=== PATIENT | female | born 1950 | race Caucasian/White ===

== ENCOUNTER 2016-10-24 16:13 | Emergency (ER) | payer OTHER ==
--- NOTE | 2016-10-24 16:51 | EDPHY ---
HPI/HX/ROS/PE/MDM Narrative: CHIEF COMPLAINT: Head injury, syncope, fever. HISTORY OF PRESENT ILLNESS: This is a 66-year-old female who presents after a syncopal episode earlier today. She has had 5 days of fever around 101-102 with cough, rhinorrhea, and myalgia. Today after a shower she was sitting on the side of the tub, when she had a syncopal episode and fell backward, hitting her head. She reports feeling near syncopal, light headed, tunnel vision prior to syncope. She immediately woke up and has not been confused since. She admits non-radiating lower back achiness. She denies diarrhea. No chest pain, shortness of breath, palpitations, vomiting, urinary complaints, headache, lightheadedness. She is not anticoagulated on blood thinners. She did not get a flu shot this year. REVIEW OF SYSTEMS: Aside from elements discussed in the HPI, a comprehensive 10-point review of systems was reviewed and is negative. PAST MEDICAL HISTORY: Cystitis, appendectomy, tonsillectomy. SOCIAL HISTORY: . VITAL SIGNS: Reviewed by me; see NN. GENERAL: Well-developed, well-nourished, in no acute distress. HEENT: Head: 1.5cm laceration to posterior head, with scant bleeding. Normocephalic. Face: Atraumatic. PERRL, EOMI, no nystagmus. Oropharynx: No trauma, normal occlusion. Neck: High cervical spine (C2/C3) tenderness. No pain with range of motion, no adenopathy. CHEST: Nontender, no subcutaneous air palpable. LUNGS: Clear to auscultation bilaterally, breath sounds are equal. Wet cough. CARDIAC: Regular rate and rhythm, no rubs, murmurs or gallops. ABDOMEN: Soft, nontender, nondistended, bowel sounds normal. BACK: No CVA tenderness. EXTREMITIES: No trauma noted, normal range of motion. PULSES: 2+ and equal throughout. NEURO: Alert and oriented x3, cranial nerves are intact throughout, normal motor , normal sensation. SKIN: Warm and dry, no rash. Portions of this note were transcribed by a medical diagnostic radiographer. I personally performed a history, physical exam, medical decision making, and confirmed accuracy of information the transcribed note. ED Course: Influenza swab ordered. Chest x-ray obtained due to fever. An IV was established and labs ordered. 1L IV saline administered for hydration. WBC low at 1.98. Flu swab positive for influenza B, however the patient has had her symptoms for too long to indicate Tamiflu treatment. X-ray of the chest was obtained. I viewed the images myself on the PACS system. My interpretation of the images is: no acute process. The radiologist interpretation is pending at this time. I discussed the x-ray findings with the patient. EK lead EKG was obtained. Independently reviewed by myself and interpreted as NSR. See [facility] for full report. Study: CT of the head/cervical spine. Indication: Trauma. Results: Mild deep hemispheric white matter change which is not specific and can be seen with small vessel ischemic disease. No evidence for acute intracranial abnormality. 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 Prominent kyphotic curvature of the cervical spine which could be secondary to positioning or muscle spasm. No evidence for acute fracture. The study was read by the radiologist Dr. Moreau. I viewed the images myself on the PACS system. Procedure: Laceration repair. Verbal consent was obtained from the patient. The 1.5 cm laceration on the posterior scalp was anesthetized. The wound was cleaned with standard ED protocol, draped and explored to its base with a gloved finger. There were no deep structures involved. The wound was repaired in single layer technique with evie. The wound repair was simple. The procedure was performed by myself. MDM: 66 year old with a syncopal episode after taking a hot bath. Do not suspect cardiac syncope. CT scans negative (head and cervical spine) for acute process. Fever likely from influenza B. Will encourage her to push fluids, rest, and take antipyretics. Offered admission to hospital but patient prefers to be discharged to home. I believe this is a reasonable plan. DCd with . - Data Points Laboratory Results: Laboratory Results 10/24/16 18:00 10/24/16 18:00 Medications Given: Discontinued Medications Sodium Chloride (Ns) 1,000 mls @ 0 mls/hr IV ONCE ONE PRN Reason: Wide Open Stop: 10/24/16 17:22 Last Admin: 10/24/16 18:29 Dose: 1,000 mls General Time Seen by Provider: 10/24/16 16:45 Initial Vital Signs: Initial Vital Signs Temperature (C) 36.5 C 10/24/16 16:19 Heart Rate 79 10/24/16 16:19 Respiratory Rate 22 H 10/24/16 16:19 Blood Pressure 124/74 H 10/24/16 16:19 O2 Sat (%) 95 10/24/16 16:19 O2 Delivery Mode Room Air Allergies/Adverse Reactions: No Known Allergies Allergy (Unverified 10/24/16 16:19) Home Medications: Medication Instructions Recorded NK [No Known Home Meds] 10/24/16 Departure - Departure Disposition: Home, Routine, Self-Care Clinical Impression: Influenza B Syncope Qualifiers: Syncope type: vasovagal syncope Qualified Code(s): R55 - Syncope and collapse Head injury Qualifiers: Encounter type: initial encounter Qualified Code(s): S09.90XA - Unspecified injury of head, initial encounter Condition: Good Instructions: Syncope (ED), Influenza (ED), Head Injury (ED) Additional Instructions: Drink plenty of fluids including electrolytes. Keep wound clean with warm water. Adult Pain & Fever Control: We recommend Acetaminophen (Tylenol) and Ibuprofen (Motrin,Advil) for pain and fever control. When fever is high or pain severe, both drugs can be used at the same time, but at different intervals. Please note the time differences. Your dose is: Acetaminophen 650mg every 4 to 6 hours Ibuprofen 600mg every 4-6 hours with food Note: do not take Acetaminophen with Hydrocodone (Vicodin, Lortab) or Oycodone (Percocet). These medications also contain Acetaminophen. No more than 3000mg of Acetaminophen should be taken in 24 hours (for an adult). Return for staple removal in -. Follow up with your primary care provider this week for reevaluation. Return to the emergency department if you experience any serious worsening of condition. Referrals: Ginger Hernandez MD [Primary Care Provider] - As per Instructions Report Scribed for: Katty Estrella Report Scribed by: Gustabo Hernandes Date of Report: 10/24/16 Time of Report: 16:50
[2016-10-24] MEDS ORDERED: NS 1,000 ML IV ONE (17:21)
--- NOTE | 2016-10-24 18:00 | CPEKG ---
Heart Rate: 72 RR Interval: 833 P-R Interval: 180 QRSD Interval: 92 QT Interval: 372 QTC Interval: 408 P [place]: 49 QRS [place]: 139 T Wave [place]: 23 EKG Severity - OTHERWISE NORMAL ECG - EKG Impression: SINUS RHYTHM EKG Impression: RIGHT AXIS DEVIATION EKG Impression: LOW VOLTAGE IN FRONTAL LEADS Electronically Signed By: Katty Estrella 24-Oct-2016 22:28:01
[2016-10-24 18:04] LABS: % IMMATURE GRANULYOCYTES 0.5 % (0.0-1.1); ABSOLUTE IMMATURE GRANULOCYTES 0.01 10^3/uL (0.00-0.10); ADD DIFF? NO; ADD MORPH? NO; ADD SCAN? NO; ATYPICAL LYMPHOCYTE FLAG 40 (0-99); FRAGMENT RBC FLAG 0 (0-99); HEMOGLOBIN 13.9 g/dL (12.6-16.3); LEFT SHIFT FLG 0 (0-99); LIPEMIA HEMOLYSIS FLAG 90 (0-99); MEAN CELL HEMOGLOBIN 28.6 pg (27.9-34.1); MEAN CELL HEMOGLOBIN CONCENTR. 34.8 g/dL (32.4-36.7); MEAN CELL VOLUME 82.3 fL (81.5-99.8); MEAN PLATELET VOLUME 8.5 fL (8.7-11.7); PLATELET CLUMPS FLAG 20 (0-99); PLATELET COUNT 158 10^3/uL (150-400); RED BLOOD CELL COUNT 4.86 10^6/uL (4.18-5.33); RED CELL DISTRIBUTION WIDTH 12.7 % (11.5-15.2)
[2016-10-24 18:22] LABS: ANION GAP 9 mEq/L (8-16); BILIRUBIN,TOTAL 0.6 mg/dL (0.1-1.4); CALCIUM 8.6 mg/dL (8.5-10.4); CARBON DIOXIDE 26 mEq/l (22-31); CHLORIDE 93 mEq/L (97-110); CREATININE 0.6 mg/dL (0.6-1.0); GLOMERULAR FILTRATION RATE > 60; GLUCOSE 90 mg/dL (70-100); POTASSIUM 4.4 mEq/L (3.5-5.2); SODIUM 128 mEq/L (134-144)
[2016-10-24 18:28] LABS: COLOR PALE YELLOW; LEUKOCYTE ESTERASE,URINE NEGATIVE (NEGATIVE); NITRITE,URINE NEGATIVE (NEGATIVE)
[2016-10-24 18:34] LABS: TROPONIN I < 0.012 ng/mL (0-0.034)
[2016-10-24 19:15] VITALS: PULSE 81
[2016-10-24 19:26] VITALS: BP 124/71; RESP 16; TEMP 98.6; O2SAT 96
== END 2016-10-24 19:25 | disposition home or self-care (01) ==
PROC: 0HQ0XZZ Repair Scalp Skin, External Approach (ICD-10-PCS; principal; 2016-10-24)
DX: S01.01XA Laceration without foreign body of scalp, initial encounter (principal); R55 Syncope and collapse; J10.1 Influenza due to other identified influenza virus with other respiratory manifestations; W18.09XA Striking against other object with subsequent fall, initial encounter